=== PATIENT | female | born 1970 | race Hispanic/Latino ===

== ENCOUNTER 2025-09-11 06:53 | Day surgery (SDC) | payer BC ==
[~2025-09-11] VITALS: Ht 165.1 cm; Wt 81.6 kg
[2025-09-11] VITALS (11 sets, daily range): BP systolic 98–134; BP diastolic 47–62; PULSE 63–71; RESP 14–18; TEMP 97.3–97.8
[~2025-09-11 06:53] MED LIST: ALBU0.63 IH; AMIO100T4 PO; ATOR10 PO; CHOL100034 PO; CYAN-35 PO; DAPA10TA PO; FERR-63 PO; FLUO20TA29 PO; FOLI0.8C PO; METO-408 PO; PANT40TA55 PO; TIRZ7.5P SQ
[2025-09-11] MEDS: 0.9%NACL 1000ML 1,000 ML IV ONE (07:36)
== END 2025-09-11 10:31 | disposition home or self-care (01) ==
LOC: ENDO 06:53 → DAH 06:53 → ENDO 10:31
PROVIDERS: ATTEND Internal Medicine Gastroenterology
DX: C16.3 Malignant neoplasm of pyloric antrum (principal); K31.89 Other diseases of stomach and duodenum; Z79.899 Other long term (current) drug therapy; Z91.041 Radiographic dye allergy status
CPT/HCPCS: 82948 ×2; 43237; J7030; J2704 ×2; A4620; A4215; J3490